=== PATIENT | female | born 1985 | race Caucasian/White ===

== ENCOUNTER → 2024-06-11 | Outpatient (CLI) | payer OTHER, SELFPAY ==
--- NOTE | 2024-06-11 09:12 | BI_ITS ---
MAMMOGRAPHY - BILATERAL DIAGNOSTIC REASON FOR EXAM: Female, 39 years old. 3 week history of a left breast lump. Tender to touch. PERTINENT HISTORY: Mother with breast cancer. TECHNIQUE: Digital bilateral breast roberta (3D mammographic acquisition) in the CC and MLO projections. 2-D mediolateral oblique (MLO) and craniocaudad (CC) views of both breasts were obtained. CAD: Full Field Digital Mammography with Computer Added Detection was performed. COMPARISON: None. Baseline examination. FINDINGS: Breast Composition: The breasts are extremely dense, which lowers the sensitivity of mammography. The palpable lump corresponds to a 2 cm x 2.3 cm well-defined nodule in the inferior anterior retroareolar region of the left breast. Correlation with ultrasound is recommended. There is also evidence of a 1.2 cm x 1.7 cm well-defined nodule in the upper the lateral aspect of the right breast. Correlation with ultrasound is recommended. No other significant abnormalities are identified. BI/DIAG MAMM W/CAD, BILAT IMPRESSION: Bilateral breast nodules as described. Targeted sonographic correlation recommended. ASSESSMENT CATEGORY: BIRADS Category 0: Incomplete. Need additional imaging evaluation. A letter regarding these results will be sent to the patient by the facility within 30 days. Approximately 10% of breast cancers are not detected by mammography. A normal mammogram should not delay biopsy of a clinically suspicious abnormality. Electronically Signed: Delvin Duffy MD at 10:57 EDT ,
--- NOTE | 2024-06-11 09:12 | US_ITS ---
STUDY: ULTRASOUND BREAST - LEFT REASON FOR EXAM: Female, 39 years old. Palpable lump in the left breast. TECHNIQUE: Axial and longitudinal images of the LEFT breast were performed with a high resolution ultrasound transducer. # OF IMAGES: 48 COMPARISON: Comparison is made with prior mammogram done earlier in the day. FINDINGS: LEFT Breast: The inferior aspect of the left breast was examined with ultrasound. There is evidence of a 2.2 cm x 2.1 cm x 1.6 cm predominately cystic structure with the low-level echoes seen in its dependent portion suggestive of possible hemorrhagic cyst. Adjacent to this, there is evidence of a 1.4 cm x 2.3 cm x 1.2 cm cyst. This corresponds to the mammographic abnormality. US/Breast Limited Unilateral IMPRESSION: Complex cyst at the 6:00 position breast at 3 cm from nipple as described. This most likely represents a hemorrhagic cyst. Follow-up in 3 months is recommended. 1.4 cm x 2.3 cm x 1.2 cm benign-appearing cyst adjacent. ASSESSMENT CATEGORY: BIRADS Category 3: Probably Benign - Short-Interval Follow-up Suggested. A letter regarding these results will be sent to the patient by the facility within 30 days. Electronically Signed: Delvin Duffy MD at 12:39 EDT ,
--- NOTE | 2024-06-11 10:23 | US_ITS ---
STUDY: ULTRASOUND BREAST - RIGHT REASON FOR EXAM: Female, 39 years old. Abnormal screening mammogram. TECHNIQUE: Axial and longitudinal images of the RIGHT breast were performed with a high resolution ultrasound transducer. # OF IMAGES: 62 COMPARISON: Comparison is made with prior mammogram done earlier today. FINDINGS: RIGHT Breast: The lateral aspect of the right breast was examined with ultrasound. There is a 1.1 cm x 1.1 cm x 0.6 cm cyst at the 11:00 position of the breast and 4 samples from the nipple. A similar appearing cystic structure measuring 1.5 cm x 1.4 cm x 0.7 cm is seen at the 10:00 position of the breast at 5 cm from the nipple. There is also evidence of a 6 mm x 6 mm x 5 mm well-defined hypoechoic nodule at the 9:00 position of the breast 9 cm from the nipple. This may represent a fragment of normal although biopsy is recommended. US/Breast Limited Unilateral IMPRESSION: 2 cysts are seen at the 10 and 11:00 position of the breast as described. 6 mm x 6 mm x 5 mm hypoechoic nodule at the 9:00 position of the breast at 9 cm from the nipple. Biopsy is recommended. ASSESSMENT CATEGORY: BIRADS Category 4: Suspicious - Biopsy Should Be Considered. A letter regarding these results will be sent to the patient by the facility within 30 days. Electronically Signed: Delvin Duffy MD at 14:04 EDT ,
[2024-06-18 11:10] LABS: HPV APTIMA, High Risk Negative (Negative)
== END | disposition home or self-care (01) ==
PROVIDERS: Referring Provider Nurse Practitioner Family; Visit Provider Nurse Practitioner Family
DX: Z12.4 Encounter for screening for malignant neoplasm of cervix (principal); N63.20 Unspecified lump in the left breast, unspecified quadrant; N63.10 Unspecified lump in the right breast, unspecified quadrant; R92.8 Other abnormal and inconclusive findings on diagnostic imaging of breast
CPT/HCPCS: 76642; 77062; 77066; 87624; 88175; G0145; G0279

== ENCOUNTER → 2024-06-15 | Outpatient (CLI) | payer OTHER, SELFPAY ==
--- NOTE | 2024-06-15 | FLU_PTH ---
PATIENT: YAIMA MASON LOC: [facility] U#:[id number] AGE/SX: 39/F ROOM: RE06/15/[address]: Dr. Jamar Cao MD : 1985 BED: DIS: 06/15/2024 SPEC #: [id number] RECD: 06/15/24 15:36 STATUS: JEREMY CHARLEEN #: [id number] GRANT: 06/15/24 00:[address]: Jmaar Cao DEPT: CYTOLOGY RECD BY: Stan Mai ENTERED: 06/16/24 09:45 SP TYPE: Fluid OTHR DR: No Primary Care Phys Tissues: Breast, NOS Procedures: Special Stain Group II Surgery Specimen Level IV Cytospin Fluid HEADER OPERATION: Left breast cyst PRE-OP DIAGNOSIS: Left breast cyst aspirate TISSUE SUBMITTED: Left breast cyst DIAGNOSIS CYTOLOGY Left breast cyst, fine needle aspiration (cytospin and cellblock): Negative for malignant cells. Acute inflammation and abscess formation. See comment. SJ.mr 06/17/2024 COMMENT Please also make reference to additional specimen [id number] right breast, core biopsy. Clinical correlation and appropriate follow up are necessary. CYTOLOGY STUDY Slides are reviewed. CYTOLOGY GROSS Received is 5 ml of brown-cloudy fluid labeled with the patient's name and and designated per the requisition as Left breast cyst. Submitted for cytology preparation including cell block. Mr 06/16/2024 TC:2 CPT: 56690,52521
== END | disposition home or self-care (01) ==
LOC: LABSPEC 15:55
PROVIDERS: Referring Provider Surgery; Visit Provider Surgery
DX: N60.02 Solitary cyst of left breast (principal); N61.1 Abscess of the breast and nipple
CPT/HCPCS: 87070; 87075; 87205; 88108; 88305; 88313

== ENCOUNTER → 2024-06-17 | Outpatient (CLI) | payer OTHER, SELFPAY ==
--- NOTE | 2024-06-17 07:50 | US_ITS ---
STUDY: ULTRASOUND BREAST - RIGHT REASON FOR EXAM: Female, 39 years old. Ultrasound-guided right breast biopsy. TECHNIQUE: Axial and longitudinal images of the RIGHT breast were performed with a high resolution ultrasound transducer. # OF IMAGES: 18 COMPARISON: Comparison is made with prior sonogram dated June 11, 2024. FINDINGS: RIGHT Breast: Under direct sonographic guidance, the surgeon performed core biopsies of the 6 mm x 6 mm x 4 mm hypoechoic nodule at the 9:00 position of the breast at 9 cm from the nipple. US/US Breast Biopsy 1st Lesion IMPRESSION: Ultrasound-guided right breast biopsy as described. Electronically Signed: Delvin Duffy MD at 15:25 EST ,
--- NOTE | 2024-06-17 08:00 | BRBX_PTH ---
PATIENT: YAIMA MASON LOC: [facility] U#:[id number] AGE/SX: 39/F ROOM: RE06/17/[address]: Flores Guerrero PA-C : 1985 BED: DIS: 06/17/2024 SPEC #: [id number] RECD: 06/17/24 08:43 STATUS: JEREMY CHARLEEN #: [id number] GRANT: 06/17/24 08:[address]: Flores Guerrero DEPT: SURGICAL PATHOLOGY RECD BY: Lewis Fulton ENTERED: 06/17/24 10:13 SP TYPE: BREAST BX OTHR DR: No Primary Care Phys Tissues: Right breast, NOS Procedures: Surgery Specimen Level IV HEADER OPERATION: Right breast biopsy PRE-OP DIAGNOSIS: Right breast lesion TISSUE SUBMITTED: Right breast biopsy Ischemic Time: 1 minute Fixation Time: 12 hours MICROSCOPIC DIAGNOSIS Right breast, core biopsy: Focal fibrocystic changes, adenosis and mild intraductal hyperplasia without atypia. Focal histocytic reaction, consistent with ruptured cyst. Negative for malignancy. See comment. 06/18/2024 COMMENT Correlation with clinical, radiologic findings and appropriate follow up are necessary. MICROSCOPIC DESCRIPTION Slides are reviewed. GROSS DESCRIPTION Received in fixative is one container labeled with the patient's name and designated Right breast. The specimen consists of multiple elongated fragments of cruz-yellow fibroadipose tissue that in aggregate measure 2.5 x 1.0 x 0.1 cm. The specimen is totally submitted in one cassette. 06/17/2024 TC:5 CPT:78413
--- NOTE | 2024-06-17 08:48 | PCM.OPRPT ---
Problems Associated Problem List Diagnoses (1) Breast mass, right: Operative Report (Standard) Operative Information Surgery/Procedure Performed: Right breast ultrasound-guided mammotome/core biopsy Surgeon: Jamar Cao Date of Procedure: 06/17/24 Procedure Start Time: 08:15 Procedure Stop Time: 08:35 Pre-Operative Diagnosis: Abnormal right breast mammogram/ultrasound Post-Operative Diagnosis: Same Select all DRAINS/GRAFTS/IMPLANTS that apply: Implanted device Implanted device details: Post biopsy marking clip deployed Type of Anesthesia: Local Special Medications: None Estimated Blood Loss: 0 mL Fluids Replaced: None Specimen collected: Yes Description of specimen(s) removed: Right breast tissue Description of surgery: Patient is a 39-year-old female recently seen to the office with an abnormal right breast mammogram and ultrasound. She had several cystic lesions noted. We were able to aspirate 1 large complex cyst on the left breast in the office however there was a 5 to 6 mm nodule in the right breast for which biopsy was recommended. I felt this was too small to biopsy in the office and instead be elected to perform this in radiology. We discussed the details of the planned procedure and she wished to proceed. After obtaining informed consent, the patient was placed in a supine position. oil and gas field technician was able to locate and identify the lesion of concern. The area was then prepped and draped in the usual sterile manner. Local anesthetic was then injected under ultrasound guidance directed at the region of biopsy. A #11 blade was then used to make a small skin incision. Through this incision a mammotome core biopsy device was then inserted. This was oriented just deep to the lesion in question. At this point numerous biopsies were obtained. It appeared that the lesion in question disappeared suggesting a possible cystic nature to this lesion. A marking clip was then deployed at the completion of the biopsy. The patient tolerated this very well. Manual pressure was held on the area. After the Steri-Strip were applied as dressing along with an OpSite. Again she tolerated this well. I will contact her once pathology results become available. 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
== END | disposition home or self-care (01) ==
LOC: OPUS 07:47
PROVIDERS: Referring Provider Physician Assistant; Visit Provider Physician Assistant
DX: N60.21 Fibroadenosis of right breast (principal); N62 Hypertrophy of breast; N60.11 Diffuse cystic mastopathy of right breast; R92.8 Other abnormal and inconclusive findings on diagnostic imaging of breast
CPT/HCPCS: 19083; 88305

== ENCOUNTER → 2025-03-18 | Outpatient (CLI) | payer OTHER, SELFPAY ==
--- NOTE | 2025-03-18 08:49 | BI_ITS ---
EXAM: DIAG MAMM W/CAD, BILAT 03/18/2025 CLINICAL HISTORY: F, Age 39 y/o , BREAST LUMP-BILATERAL TECHNIQUE: DIAG MAMM W/CAD, BILAT. COMPARISON: Prior exam(s) dated June 11, 2024. FINDINGS: TISSUE DENSITY: The breasts are extremely dense, which lowers the sensitivity of mammography. Bilateral Breast Mammographic Findings: The palpable lump in the upper-outer quadrant of the left breast corresponds to a questionable 1.8 cm nodular density. Correlation with ultrasound is recommended. I also suspect a 1.6 cm by 1.5 cm nodule in the upper lateral aspect of the right breast. Correlation with ultrasound recommended. BI/DIAG MAMM W/CAD, BILAT IMPRESSION: Findings suggestive of bilateral breast nodules as described. Targeted sonogra phic correlation recommended. OVERALL FINAL ASSESSMENT BI-RADS 0: INCOMPLETE - NEED ADDITIONAL IMAGING EVALUATION. RECOMMENDATION: Ultrasound Recommended A letter with findings and recommendations will be mailed to the patient. Reading Location: [facility]
--- NOTE | 2025-03-18 08:49 | US_ITS ---
PROCEDURE: BREAST LIMITED UNILATERAL 03/18/2025 REASON FOR EXAM: F, Age 39 y/o , BREAST LUMP COMPARISON: Prior mammogram done earlier in the day.. TECHNIQUE: BREAST LIMITED UNILATERAL. Targeted ultrasound of the right breast was obtained. FINDINGS: There is a 1.4 cm 1.1 cm x 0.9 cm cyst with septation at the 12 o'clock position of the breast at 4 cm from the nipple. There is also evidence of a 5 mm x 6 mm x 5 mm hypoechoic nodule at the 9 o'clock position of the breast at 6 cm from the nipple. This is taller than wide. Biopsy recommended. US/Breast Limited Unilateral IMPRESSION: Suspicious hypoechoic 5 mm x 6 mm x 5 mm hypoechoic nodule at the 9 o'clock pos ition of the breast at 6 cm from the nipple. Biopsy recommended. BI-RADS 4: SUSPICIOUS RECOMMENDATION: Biopsy Recommended Reading Location: [facility]
--- NOTE | 2025-03-18 08:49 | US_ITS ---
PROCEDURE: BREAST LIMITED UNILATERAL 03/18/2025 REASON FOR EXAM: F, Age 39 y/o , BREAST LUMP Bilateral breast lumps. COMPARISON: Prior mammogram done earlier in the day.. TECHNIQUE: BREAST LIMITED UNILATERAL. The lateral midportion of the left breast was examined with ultrasound. FINDINGS: There is a 1.6 cm 1.1 cm x 0.7 cm hypoechoic nodule with central increased echotexture at the 4 o'clock position of the breast at 8 cm from the nipple. This most likely represents a small lymph node. There is also evidence of a 1.5 cm x 0.7 cm x 1.4 cm cyst at the 4 o'clock position of the breast at 7 cm from the nipple. US/Breast Limited Unilateral IMPRESSION: 1.6 cm 1.1 cm x 0.7 cm hypoechoic nodule suggestive of the lymph node at the 4 o'clock position of the breast at 8 cm from the nipple. 1.5 cm x 0.7 cm 1.4 cm cyst at the 4 o'clock position of the breast at 7 cm fro m the nipple. BI-RADS 2: BENIGN RECOMMENDATION: Routine annual follow-up in 1 Year Reading Location: [facility]
== END | disposition home or self-care (01) ==
PROVIDERS: Referring Provider Nurse Practitioner Family; Visit Provider Nurse Practitioner Family
DX: N63.21 Unspecified lump in the left breast, upper outer quadrant (principal); N63.15 Unspecified lump in the right breast, overlapping quadrants
CPT/HCPCS: 76642; 77062; 77066; G0279

== ENCOUNTER → 2025-04-05 | Outpatient (CLI) | payer OTHER, SELFPAY ==
--- NOTE | 2025-04-05 | BRBX_PTH ---
PATIENT: YIAMA MASON LOC: [facility] U#:[id number] AGE/SX: 39/F ROOM: RE04/05/[address]: Flores Guerrero PA-C : 1985 BED: DIS: 04/05/2025 SPEC #: [id number] RECD: 04/05/25 09:35 STATUS: JEREMY CHARLEEN #: [id number] GRANT: 04/05/25 00:[address]: Flores Guerrero DEPT: SURGICAL PATHOLOGY RECD BY: Alon Humphries ENTERED: 04/05/25 10:41 SP TYPE: BREAST BX OTHR DR: Dr. Tomas Patton MD Tissues: A - Right breast, NOS Procedures: Surgery Specimen Level V HEADER OPERATION: Ultrasound guided right breast core biopsy PRE-OP DIAGNOSIS: Right breast mass TISSUE SUBMITTED: A- Right breast - 10:00, 4cm from nipple MICROSCOPIC DIAGNOSIS A. Right breast, 10 o'clock, 4 CMFN, ultrasound-guided core biopsy: - Benign breast tissue. MICROSCOPIC DESCRIPTION Slides are reviewed. GROSS DESCRIPTION A. Received in formalin labeled with the patient's name and date of . Designated as RT breast mass is a 2.5 x 1.2 x 0.3 cm aggregate of cruz-white tissue cores and clotted blood. Entirely submitted in 1 cassette. Cold ischemic time: <1 minuteFormalin fixation time: 10 hours, 19 minutes ID 04/05/2025PT:[id number]
--- NOTE | 2025-04-05 08:18 | US_ITS ---
PROCEDURE: US BREAST BIOPSY 1ST LESION 04/05/2025 REASON FOR EXAM: F, Age 39 y/o , RIGHT BREAST MASS TECHNIQUE: US BREAST BIOPSY 1ST LESION. Under direct sonographic guidance, the surgeon performed core biopsies of the nodule at the 10 o'clock position of the breast at 4 cm from the nipple. COMPARISON: Prior exam(s) dating back to March 18, 2025.. FINDINGS: ULTRASOUND: Ultrasound was targeted to the hypodense nodule at the 10 o'clock position of the breast at 4 cm from the nipple. A tissue clip marker was placed. US/US Breast Biopsy 1st Lesion IMPRESSION: OVERALL FINAL ASSESSMENT: BIRADS 11 WAITING PATHOLOGY RECOMMENDATION: Routine annual follow-up in 1 Year Reading Location: [id number]
--- NOTE | 2025-04-05 09:16 | BI_ITS ---
EXAM: DIAG MAMM W/CAD, UNILAT 04/05/2025 CLINICAL HISTORY: F, Age 39 y/o , POST BX. Post biopsy mammogram for placement of the tissue clip markers. TECHNIQUE: DIAG MAMM W/CAD, UNILAT. COMPARISON: Prior exam(s) dated March 18, 2025.. FINDINGS: TISSUE DENSITY: The breasts are extremely dense, which lowers the sensitivity of mammography. Bilateral Breast Mammographic Findings: A tissue clip marker is seen in the deep upper lateral aspect of the right breast. A similar-appearing tissue clip marker is seen in the mid upper lateral aspect of the right breast. BI/DIAG MAMM W/CAD, UNILAT IMPRESSION: Status post right breast biopsies. Tissue clip markers as described. OVERALL FINAL ASSESSMENT BI-RADS 2: BENIGN RECOMMENDATION: OTHER A letter with findings and recommendations will be mailed to the patient. Reading Location: [id number]
--- NOTE | 2025-04-05 10:16 | PCM.OPRPT ---
Problems Associated Problem List Diagnoses (1) Breast mass, right: Procedures Integumentary 16xxx-193xx: [id number] Bx breast 1st lesion us imag Operative Report (Standard) Operative Information Date of Procedure: 04/05/25 Pre-Operative Diagnosis: Abnormal right breast mammogram and ultrasound Post-Operative Diagnosis: Same Surgery/Procedure Performed: Ultrasound-guided right breast mammotome biopsy x 1 site with post procedure clip placement vice president compliance: No Type of Anesthesia: Local Procedure Start Time: 09:00 Procedure Stop Time: 09:15 Select all DRAINS/GRAFTS/IMPLANTS that apply: Prosthetic device Prosthetic device details: Post procedure marking clip x 1 Estimated Blood Loss: Minimal Specimen collected: Yes Description of specimen(s) removed: Right breast tissue Description of surgery: After obtaining informed consent, the patient was placed supine on the procedure room cart. Radiology garage door service technician was able to identify the lesion in question in the upper outer aspect of the right breast. Once this was confirmed, the region of the right breast was then prepped and draped in the usual sterile manner. Local anesthetic was infiltrated in the vicinity of the lesion. A #11 blade was then used to make a very small skin incision to accommodate the mammotome biopsy device. Once adequately anesthetized, the mammotome device was inserted under ultrasound guidance and was positioned just deep to the lesion in question. The biopsy trough was directly below the lesion. At this point, for suction biopsy passes were made with good tissue sampling with each pass. Each biopsy was performed under real-time ultrasound. Patient tolerated this portion well. Once this was sufficiently biopsied, a marking clip was then deployed also under ultrasound guidance. This seemed to be in excellent position. Manual pressure was held on the area for several minutes to ensure hemostasis. Next, Steri-Strips and an OpSite were applied as dressing. She tolerated this well. She will then undergo postprocedure mammogram to confirm clip placement. Surgical Findings: See operative note Complications Complications: No Admit VTE Documentation VTE Present on Admission: No VTE Mechan Device Prophylaxis: SCD's VTE Pharm Prophylaxis ordered?: No Reason prophylaxis not ordered: Treatment Not Indicated
== END | disposition home or self-care (01) ==
PROVIDERS: PCP Internal Medicine; Referring Provider Physician Assistant; Visit Provider Physician Assistant
DX: N63.11 Unspecified lump in the right breast, upper outer quadrant (principal); R92.8 Other abnormal and inconclusive findings on diagnostic imaging of breast
CPT/HCPCS: 19083; 77065; 88305; 88307